=== PATIENT | male | born 1965 | race Caucasian/White ===

== ENCOUNTER 2023-01-24 11:22 | Inpatient (IN) | payer MEDICARE, OTHER ==
[~2023-01-24] VITALS: Ht 167.6 cm; Wt 78.9 kg
[2023-01-24] MEDS ORDERED: METO25TA6 PO (12:03)
[2023-01-24] MEDS ORDERED: CLOP75TA33 PO (12:03)
[2023-01-24] MEDS ORDERED: ATOR40TA PO (12:03)
[2023-01-24] MEDS ORDERED: ASPI81TA31 PO (12:03)
[2023-01-24] MEDS ORDERED: METF-442 PO (12:03)
[2023-01-24] MEDS ORDERED: RIVA10TA PO (12:03)
[2023-01-24 12:25] LABS: HEMATOCRIT 35.7 % (36.7-47.1); MEAN CORPUSCULAR HEMOGLOBIN 19.3 uug (23.8-33.4); MEAN CORPUSCULAR VOLUME 62.9 fL (73.0-96.2); PLATELET COUNT (AUTO) 329 K/uL (152-348)
[2023-01-24] MEDS ORDERED: IV NORMAL SALINE 500 ML BAG IV ONE (12:30)
[2023-01-24] MEDS ORDERED: METOPROLOL TARTRATE 5 MG/5 ML VIAL IVP ONE (12:30)
[2023-01-24 12:36] LABS: CREATININE 1.2 mg/dL (0.6-1.3); POTASSIUM 3.7 mmol/L (3.5-5.1)
[2023-01-24] MEDS ORDERED: VANCOMYCIN IV 1,000 MG in IV DEXTROSE 5% 250 ML IV ONE (12:45)
[2023-01-24] MEDS ORDERED: CEFEPIME HCL 1 G in IV DEXTROSE 5% 50 ML IV ONE (12:45)
[2023-01-24] MEDS ORDERED: CEFEPIME HCL 1 G VIAL ONE (12:48)
[2023-01-24] MEDS ORDERED: VANCOMYCIN IV 200 ML ONE (13:24)
--- NOTE | 2023-01-24 13:27 | NUR ---
maxepime finished at 1327
[2023-01-24] MEDS ORDERED: MORPHINE SULFATE 4 MG/1 ML DISP.SYRIN IV ONE (13:45)
[2023-01-24] MEDS ORDERED: LIDOCAINE HCL 1% 20 ML VIAL ONE (13:46)
[2023-01-24] MEDS ORDERED: BUPIVACAINE PF 0.5% 30 ML VIAL ONE (13:46)
[2023-01-24] MEDS ORDERED: MORPHINE SULFATE 4 MG/1 ML DISP.SYRIN ONE (13:53)
[2023-01-24] MEDS ORDERED: diphenhydrAMINE 50 MG/1 ML VIAL ONE (13:58)
[2023-01-24] MEDS ORDERED: FENTANYL CITRATE 100 MCG/2 ML AMPUL ONE (13:59)
[2023-01-24] MEDS ORDERED: MIDAZOLAM HCL 10 MG/2 ML VIAL ONE (13:59)
[2023-01-24] MEDS ORDERED: POVIDONE-IODINE OINT 30 GM TUBE TP ONE (13:59)
[2023-01-24] MEDS ORDERED: FAMOTIDINE. 20 MG/2 ML VIAL IV ONE (14:00)
[2023-01-24] MEDS ORDERED: ONDANSETRON 4 MG/2 ML VIAL ONE (14:00)
[2023-01-24] MEDS ORDERED: diphenhydrAMINE 50 MG/1 ML VIAL IV ONE (14:00)
[2023-01-24] MEDS ORDERED: PROPOFOL 200 MG/20 ML BOTTLE ONE (14:00)
--- NOTE | 2023-01-24 14:05 | NUR ---
Within moments of starting the vancomycin, pt c/o intense itching. Infusion was stopped and MD fartun notified and Andrew ordered and given. 4mg morphine was held based on orders from OR staff as they took the pt to surgery.
[2023-01-24] MEDS ORDERED: MIDAZOLAM HCL 2 MG/2 ML VIAL ONE (14:06)
[2023-01-24 15:50] VITALS: BP 121/78
--- NOTE | 2023-01-24 16:04 | NUR ---
RECEIVED PATIENT FROM THE [facility] UNIT TO ROOM 314 WITH INITIAL DIAGNOSIS OG RIGHT SECOND TOE GANGRENE AND S/P AMPUTATION OT THE SECOND TOE WITH DRESSING DRY AND INTACT HE HAS ABOUT 3 TOES SOWING FOR THE DRESSING AND HE IS ABLE TO WIGGLE AND IS WARM TO TOUCH.HE IS ON ROOM AIR WITH NO SOB AT THIS TIME.ORIENTED TO ROOM AND FACILITY PROTOCOL NOTIFIRD DR ROSADO THAT PATIENT IS HERE WITH NO NEW ORDERS AT THIS TIME.
[2023-01-24 16:05] VITALS: BP 121/82
[2023-01-24 16:35] VITALS: BP 134/90
--- NOTE | 2023-01-24 16:38 | NUR ---
3rd floor called, gave report to EDMAR Madsen
--- NOTE | 2023-01-24 17:20 | NUR ---
WAS NOTIFIED BY THE NURSE QUALITY THAT PATIENT HAS AFIB WITH RVR HIGH [address] ROSADO AND NOTIFIED HIM PATIENT BLOOD PRESSURE IS 151/84 DENIES DISCOMFORTS EATING HIS DINNER AT THIS TIME WILL CONTINUE TO OBSERVE.
[2023-01-24 17:35] VITALS: BP 133/88
[2023-01-24] MEDS ORDERED: AMIODARONE HCL IV 150 MG in IV DEXTROSE 5% 100 ML IV ONE (18:00)
--- NOTE | 2023-01-24 18:00 | NUR ---
DR ROSADO RETURNED CALL AND STATED TO TRANSFER PATIENT TO CCU AND TO START AMIODARONE DRCALIXTO TIRADO RN AWARE.
[2023-01-24] MEDS ORDERED: diphenhydrAMINE 50 MG/1 ML VIAL IV PRN (18:15)
[2023-01-24] MEDS ORDERED: ONDANSETRON 4 MG/2 ML VIAL IV PRN (18:15)
[2023-01-24] MEDS ORDERED: MAGNESIUM HYDROXIDE 30 ML LIQUID UDC PO PRN (18:15)
[2023-01-24] MEDS ORDERED: POTASSIUM CHLORIDE 20 MEQ in IV NS 1000 ML 1,000 ML IV PRN (18:15)
--- NOTE | 2023-01-24 18:34 | NUR ---
spoke to Dr Arteaga- pt ordered as LUKE status- amiodarone bolus followed by drip per protocol, BP 151/84 with HR 145 afib RVR, pt denies of any chest pain, no shortness of breath, will continue to monitor
[2023-01-24] MEDS: AMIODARONE HCL IV 450 MG in IV DEXTROSE 5% 250 ML IV PRN (18:53)
--- NOTE | 2023-01-24 18:53 | NUR ---
amiodarone drip 1mg/hr via pump started, still in afib RVR, BP 120/81 HR 140, denies of any CP, no shortness of breath, no distress, continue to monitor and will endorse to next shift
[2023-01-24 19:10] VITALS: BP 126/84
[2023-01-24] MEDS: RIVAROXABAN 15 MG TABLET PO SCH (19:28)
[2023-01-24] MEDS: METOPROLOL TARTRATE 25 MG TABLET PO SCH (19:29)
--- NOTE | 2023-01-24 19:30 | NUR ---
inserted H/L placed no .20 right forearm attempted x1 done aseptically .
[2023-01-24] MEDS: HYDROMORPHONE 1 MG/1 ML DISP.SYRIN IV PRN (19:35)
--- NOTE | 2023-01-24 19:35 | NUR ---
given Dilaudid prn pain medication c/o 8/10 pain to his right foot . right foot post post site dressing CDI , patient able to feel the touch when touch . able to wiggle the toes .
--- NOTE | 2023-01-24 20:00 | NUR ---
patient on amiodarone drip at 1 mg/hr = 33.3 ml/hr afib on the heart monitor rate 132.
[2023-01-24 20:01] VITALS: BP 129/90
[2023-01-24] MEDS: ATORVASTATIN 40 MG TABLET PO SCH (20:04)
[2023-01-24] MEDS: DOCUSATE SODIUM 100 MG CAPSULE PO SCH (20:04)
[2023-01-24] MEDS: ACETAMINOPHEN 325 MG TABLET PO PRN (20:05)
--- NOTE | 2023-01-24 20:05 | NUR ---
Tylenol prn given c/o low grade temp 100.4 orally .
--- NOTE | 2023-01-24 20:08 | NUR ---
started vancomycin antibiotic per pharmacy notes DR: ALISON aware about the vancomycin rxn in ER with standing order to monitor for vancomycin RXN call md and to given prn Benadryl standing order .
[2023-01-24] MEDS ORDERED: DOCUSATE SODIUM 250 MG CAPSULE PO SCH (21:00)
[2023-01-24] MEDS ORDERED: VANCOMYCIN IV 1,250 MG in IV DEXTROSE 5% 250 ML IV SCH (21:00)
--- NOTE | 2023-01-24 21:00 | NUR ---
send covid 19 swab testing . swab patient bilateral nares.
[2023-01-24] MEDS: CEFEPIME HCL 2 G in IV DEXTROSE 5% 100 ML IV SCH (21:46)
[2023-01-24] MEDS ORDERED: CEFEPIME HCL 1 G in IV DEXTROSE 5% 50 ML IV SCH (22:00)
--- NOTE | 2023-01-24 22:26 | NUR ---
vancomycin antx completed no antx rxn noted .
--- NOTE | 2023-01-25 | NUR ---
TEMP 101.5 F ORALLY given Tylenol po and provided ice water advised to drink more fluids .
[2023-01-25 00:26] VITALS: BP 113/71
--- NOTE | 2023-01-25 01:00 | NUR ---
amiodarone drip now at 0.5 mg/hr = to 16.6 ml/hr per protocol . afib rate rate 105
[2023-01-25] MEDS: ACETAMINOPHEN 325 MG TABLET PO PRN ×2 (01:29→20:42)
[2023-01-25] MEDS: AMIODARONE HCL IV 450 MG in IV DEXTROSE 5% 250 ML IV PRN (03:29)
[2023-01-25] MEDS: HYDROMORPHONE 1 MG/1 ML DISP.SYRIN IV PRN ×4 (03:41→21:00)
--- NOTE | 2023-01-25 03:42 | NUR ---
patient called verbalized unable to sleep c/o pain to his right foot . given prn pain meds . right foot dressing CDI and patient with good CMS
--- NOTE | 2023-01-25 04:00 | NUR ---
v/s temp 98.1F ORALLY and patient feels better no sweating changed soiled linens and gown .
[2023-01-25 04:15] VITALS: BP 103/75
[2023-01-25] MEDS: PANTOPRAZOLE SODIUM 40 MG TABLET.DR PO SCH (06:28)
[2023-01-25] MEDS: CEFEPIME HCL 2 G in IV DEXTROSE 5% 100 ML IV SCH ×3 (06:28→21:04)
[2023-01-25 07:32] VITALS: BP 111/65
[2023-01-25 07:48] LABS: HEMATOCRIT 33.8 % (36.7-47.1); MEAN CORPUSCULAR HEMOGLOBIN 19.6 uug (23.8-33.4); MEAN CORPUSCULAR VOLUME 63.6 fL (73.0-96.2); PLATELET COUNT (AUTO) 260 K/uL (152-348)
--- NOTE | 2023-01-25 08:04 | NUR ---
Awake, alert, oriented x 4. Amiodarone drip at 0.5 mg to LFA. IVF infusing to RFA. Tele Afib 104. Right foot dressing clean and dry.
[2023-01-25 08:16] LABS: ALKALINE PHOSPHATASE 202 U/L (50-136); BILIRUBIN,TOTAL 1.3 mg/dL (0.2-1.0); CARBON DIOXIDE 30 mmol/L (21-32); CHLORIDE 95 mmol/L (98-107); CREATININE 1.3 mg/dL (0.6-1.3); GLUCOSE 210 mg/dL (74-106); MAGNESIUM 1.5 mg/dL (1.8-2.4); PHOSPHOROUS 3.6 mg/dL (2.5-4.9); TOTAL PROTEIN, SERUM 6.7 g/dL (6.4-8.2); UREA NITROGEN, BLOOD 20 mg/dL (7-18)
[2023-01-25 08:43] LABS: CHOLESTEROL 68 mg/dL (<200); HDL CHOLESTEROL 37 mg/dL (40-60); TRIGLYCERIDES 41 MG/DL (30-150)
[2023-01-25] MEDS: ASPIRIN EC 81 MG TABLET.DR PO SCH (09:12)
[2023-01-25] MEDS: CLOPIDOGREL 75 MG TABLET PO SCH (09:12)
[2023-01-25] MEDS: METOPROLOL TARTRATE 25 MG TABLET PO SCH (09:13)
--- NOTE | 2023-01-25 09:15 | NUR ---
Reports of pain right foot. Dilaudid IV given as ordered. PT eval initiated after, ambulated in the hallway with FWW
[2023-01-25 09:21] LABS: IRON, SERUM 16 ug/dL (50-175)
[2023-01-25 09:44] LABS: ASPARTATE AMINOTRANSFERASE 9 U/L (15-37)
[2023-01-25 09:50] LABS: ALANINE AMINOTRANSFERASE < 6 U/L (16-63)
[2023-01-25] MEDS: MAGNESIUM SULFATE/D5W 100 ML IV SCH ×2 (09:55→10:59)
[2023-01-25] MEDS ORDERED: DEXTROSE 50% 50 ML DISP.SYRIN IV PRN (10:00)
[2023-01-25 11:16] VITALS: BP 120/78
[2023-01-25] MEDS ORDERED: INSU100I26 SQ (11:34)
[2023-01-25] MEDS: METFORMIN HCL 500 MG TABLET PO SCH ×2 (12:09→17:36)
[2023-01-25] MEDS: BLOOD SUGAR DIAGNOSTIC 1 EACH STRIP VI SCH ×3 (12:09→20:43)
[2023-01-25] MEDS: INSULIN REGULAR, HUMAN 300 UNIT/3 ML VIAL SQ PRN ×3 (12:12→20:55)
--- NOTE | 2023-01-25 12:15 | NUR ---
BG 323, Insulin given per sliding scale
--- NOTE | 2023-01-25 14:21 | NUR ---
Report of right foot pain. Dilaudid IV given as ordered with relief. Resting after.
[2023-01-25 15:20] VITALS: BP 136/87
--- NOTE | 2023-01-25 15:30 | NUR ---
Tele Afib 89; Dr. Islas seen patient with order. Amiodarone drip discontinued.
[2023-01-25] MEDS: VANCOMYCIN IV 1,250 MG in IV DEXTROSE 5% 250 ML IV SCH (17:36)
[2023-01-25] MEDS: RIVAROXABAN 15 MG TABLET PO SCH (17:38)
--- NOTE | 2023-01-25 18:25 | NUR ---
Dr. Mac seen and examined patient. Right foot dressing changed, kept clean and dry.
[2023-01-25 20:00] VITALS: BP 115/64
--- NOTE | 2023-01-25 20:33 | NUR ---
fingerstick done blood sugar result 186 mg/dl ISS given .
[2023-01-25] MEDS: DOCUSATE SODIUM 100 MG CAPSULE PO SCH (20:41)
[2023-01-25] MEDS: ATORVASTATIN 40 MG TABLET PO SCH (20:41)
[2023-01-25] MEDS: METOPROLOL TARTRATE 50 MG TABLET PO SCH (20:42)
--- NOTE | 2023-01-25 20:42 | NUR ---
Tylenol prn given c/o low grade temperature of 99.4 F orally . patient took mediation with water .
[2023-01-25] MEDS: INSULIN GLARGINE,HUM 300 UNITS/3 ML CARTRIDGE SQ SCH (20:54)
[2023-01-25] MEDS ORDERED: MUPIROCIN 2% OINT 22 GM TUBE NS SCH (21:00)
[2023-01-25] MEDS ORDERED: METOPROLOL TARTRATE 25 MG TABLET PO SCH (21:00)
--- NOTE | 2023-01-25 21:00 | NUR ---
patient called and requesting pain medication 10 /10 pain to his right foot. checked right foot post op site dressing CDI ,patient able to moved the foot with good CMS .RIGHT FOOT ELEVATED WITH PILLOW .
--- NOTE | 2023-01-25 21:04 | NUR ---
due antx given scan medication given via the right midline access ,flushed and patent .
[2023-01-26] VITALS: BP 112/74
[2023-01-26] MEDS: HYDROMORPHONE 1 MG/1 ML DISP.SYRIN IV PRN ×7 (00:54→23:54)
[2023-01-26 04:00] VITALS: BP 93/68
[2023-01-26] MEDS: CEFEPIME HCL 2 G in IV DEXTROSE 5% 100 ML IV SCH ×3 (05:42→21:16)
[2023-01-26] MEDS: PANTOPRAZOLE SODIUM 40 MG TABLET.DR PO SCH (06:09)
[2023-01-26] MEDS: BLOOD SUGAR DIAGNOSTIC 1 EACH STRIP VI SCH ×4 (06:36→21:23)
[2023-01-26 07:06] LABS: HEMATOCRIT 30.7 % (36.7-47.1); MEAN CORPUSCULAR HEMOGLOBIN 19.6 uug (23.8-33.4); MEAN CORPUSCULAR VOLUME 62.9 fL (73.0-96.2); PLATELET COUNT (AUTO) 274 K/uL (152-348)
[2023-01-26 07:23] LABS: CREATININE 1.1 mg/dL (0.6-1.3); PHOSPHOROUS 2.9 mg/dL (2.5-4.9); POTASSIUM 3.8 mmol/L (3.5-5.1)
--- NOTE | 2023-01-26 08:00 | NUR ---
PATIENT RESTING IN BED WITH NO SS OF SOB OR DISTRESS BUT ON AND OFF PAIN RIGHT FOOT CONTINUE WITH PAIN MANAGEMENT ORDERED. SE ON MONITOR
[2023-01-26] MEDS: METFORMIN HCL 500 MG TABLET PO SCH ×2 (08:23→17:31)
[2023-01-26] MEDS: ASPIRIN EC 81 MG TABLET.DR PO SCH (08:23)
[2023-01-26] MEDS: CLOPIDOGREL 75 MG TABLET PO SCH (08:24)
[2023-01-26] MEDS: METOPROLOL TARTRATE 50 MG TABLET PO SCH ×2 (08:24→22:21)
[2023-01-26 11:54] VITALS: BP 106/69
--- NOTE | 2023-01-26 12:00 | NUR ---
SEEN BY HOSPITALIST FOR FOLLOW-UP AND DISCUSSED PLAN OF CARE. SEE NOTES
[2023-01-26] MEDS: INSULIN REGULAR, HUMAN 300 UNIT/3 ML VIAL SQ PRN ×3 (12:03→21:28)
[2023-01-26] MEDS: VANCOMYCIN IV 1,250 MG in IV DEXTROSE 5% 250 ML IV SCH (12:05)
--- NOTE | 2023-01-26 14:58 | NUR ---
SEEN BY PHYSICAL THERAOIST FOR FOLLOW-UP WITH CRUTCH. SEE NOTES.
[2023-01-26 15:50] VITALS: BP 108/60
[2023-01-26] MEDS: RIVAROXABAN 15 MG TABLET PO SCH (17:31)
[2023-01-26 20:00] VITALS: BP 110/59
[2023-01-26] MEDS: DOCUSATE SODIUM 100 MG CAPSULE PO SCH (20:21)
[2023-01-26] MEDS: ATORVASTATIN 40 MG TABLET PO SCH (20:21)
[2023-01-26] MEDS: INSULIN GLARGINE,HUM 300 UNITS/3 ML CARTRIDGE SQ SCH (21:29)
[2023-01-27] VITALS (8 sets, daily range): BP systolic 96–132; BP diastolic 42–82
[2023-01-27] MEDS: HYDROMORPHONE 1 MG/1 ML DISP.SYRIN IV PRN ×6 (02:43→22:54)
[2023-01-27] MEDS: CEFEPIME HCL 2 G in IV DEXTROSE 5% 100 ML IV SCH ×3 (05:14→21:06)
[2023-01-27] MEDS: PANTOPRAZOLE SODIUM 40 MG TABLET.DR PO SCH (06:03)
[2023-01-27] MEDS: BLOOD SUGAR DIAGNOSTIC 1 EACH STRIP VI SCH ×4 (06:09→20:23)
[2023-01-27] MEDS: INSULIN REGULAR, HUMAN 300 UNIT/3 ML VIAL SQ PRN ×4 (07:45→20:22)
--- NOTE | 2023-01-27 08:00 | NUR ---
RESTING COMFORTABLY IN BED WITH C/O MILD TO MODERATE PAIN RIGHT FOOT. CONTINUE WITH PRN MEDS ORDERED WITH TEMPORARY RELIEF. AFIB CONTROLLED ON MONITOR
[2023-01-27 08:11] LABS: HEMATOCRIT 31.1 % (36.7-47.1); MEAN CORPUSCULAR HEMOGLOBIN 19.8 uug (23.8-33.4); MEAN CORPUSCULAR VOLUME 63.3 fL (73.0-96.2); PLATELET COUNT (AUTO) 272 K/uL (152-348)
[2023-01-27] MEDS: ASPIRIN EC 81 MG TABLET.DR PO SCH (08:25)
[2023-01-27] MEDS: METFORMIN HCL 500 MG TABLET PO SCH ×2 (08:25→17:24)
[2023-01-27] MEDS: CLOPIDOGREL 75 MG TABLET PO SCH (08:25)
[2023-01-27] MEDS: METOPROLOL TARTRATE 50 MG TABLET PO SCH ×2 (08:26→20:09)
[2023-01-27 08:31] LABS: CREATININE 1.2 mg/dL (0.6-1.3); MAGNESIUM 1.8 mg/dL (1.8-2.4); PHOSPHOROUS 3.1 mg/dL (2.5-4.9); POTASSIUM 4.3 mmol/L (3.5-5.1); VANCOMYCIN,TROUGH 12.9 ug/mL (12.0-20.0)
[2023-01-27] MEDS: VANCOMYCIN IV 1,250 MG in IV DEXTROSE 5% 250 ML IV SCH (09:37)
--- NOTE | 2023-01-27 12:56 | NUR ---
CONTINUE WITH IV ANTIBIOTIC AND FOOT TX ORDERED. RIGHT FOOT ELEVATED AT ALL TIMES
[2023-01-27] MEDS: RIVAROXABAN 15 MG TABLET PO SCH (17:25)
[2023-01-27] MEDS: FUROSEMIDE 40 MG TABLET PO SCH (19:58)
[2023-01-27] MEDS: DOCUSATE SODIUM 100 MG CAPSULE PO SCH (20:09)
[2023-01-27] MEDS: ATORVASTATIN 40 MG TABLET PO SCH (20:09)
[2023-01-27] MEDS: INSULIN GLARGINE,HUM 300 UNITS/3 ML CARTRIDGE SQ SCH (20:23)
[2023-01-28] VITALS (9 sets, daily range): BP systolic 97–122; BP diastolic 50–64
[2023-01-28] MEDS: VANCOMYCIN IV 1,250 MG in IV DEXTROSE 5% 250 ML IV SCH (05:01)
[2023-01-28] MEDS: CEFEPIME HCL 2 G in IV DEXTROSE 5% 100 ML IV SCH ×3 (05:01→21:15)
[2023-01-28] MEDS: PANTOPRAZOLE SODIUM 40 MG TABLET.DR PO SCH (06:06)
[2023-01-28] MEDS: BLOOD SUGAR DIAGNOSTIC 1 EACH STRIP VI SCH ×4 (06:17→20:49)
[2023-01-28 06:53] LABS: HEMATOCRIT 30.8 % (36.7-47.1); MEAN CORPUSCULAR HEMOGLOBIN 19.8 uug (23.8-33.4); MEAN CORPUSCULAR VOLUME 62.9 fL (73.0-96.2); PLATELET COUNT (AUTO) 294 K/uL (152-348)
[2023-01-28 06:54] LABS: MAGNESIUM 1.7 mg/dL (1.8-2.4); PHOSPHOROUS 3.3 mg/dL (2.5-4.9); POTASSIUM 3.9 mmol/L (3.5-5.1)
[2023-01-28] MEDS: INSULIN REGULAR, HUMAN 300 UNIT/3 ML VIAL SQ PRN ×4 (07:56→20:47)
[2023-01-28] MEDS: METFORMIN HCL 500 MG TABLET PO SCH ×2 (07:58→17:03)
--- NOTE | 2023-01-28 08:00 | NUR ---
Received patient lying in bed awake, alert and oriented. Not in distress, A-fib on cardiac tele monitor at 103bpm, closely monitored. No complain of pain. Vital signs are stable, medications given and recorded.
[2023-01-28] MEDS: ASPIRIN EC 81 MG TABLET.DR PO SCH (08:34)
[2023-01-28] MEDS: CLOPIDOGREL 75 MG TABLET PO SCH (08:34)
[2023-01-28] MEDS: FUROSEMIDE 40 MG TABLET PO SCH ×2 (08:34→17:04)
[2023-01-28] MEDS: METOPROLOL TARTRATE 50 MG TABLET PO SCH ×2 (08:34→20:39)
--- NOTE | 2023-01-28 09:00 | NUR ---
Seen by physical therapist, treatment done and ambulate using crutches.
[2023-01-28] MEDS: ACETAMINOPHEN 325 MG TABLET PO PRN (09:08)
[2023-01-28] MEDS ORDERED: MAGNESIUM OXIDE 400 MG TABLET PO ONE (09:45)
--- NOTE | 2023-01-28 10:00 | NUR ---
Wound care done and dressing changed to right toe and right heel. Keep wound clean and no infections.
[2023-01-28] MEDS: HYDROMORPHONE 1 MG/1 ML DISP.SYRIN IV PRN ×2 (10:40→21:18)
--- NOTE | 2023-01-28 10:40 | NUR ---
Patient complaining of pain, Dilaudid 0.5mg IV given. Observed accordingly
--- NOTE | 2023-01-28 11:00 | NUR ---
Seen and examined by Dr. Doshi, with orders made and carried out, continue with tele, continue care plan. Attended
--- NOTE | 2023-01-28 14:46 | NUR ---
Seen patient asleep, resting comfortably, no complain as this time. No acute changes from morning shift. Keep monitored.
[2023-01-28] MEDS: RIVAROXABAN 15 MG TABLET PO SCH (17:04)
[2023-01-28] MEDS: ATORVASTATIN 40 MG TABLET PO SCH (20:22)
[2023-01-28] MEDS: DOCUSATE SODIUM 100 MG CAPSULE PO SCH (20:22)
[2023-01-28] MEDS: INSULIN GLARGINE,HUM 300 UNITS/3 ML CARTRIDGE SQ SCH (20:47)
[2023-01-28] MEDS ORDERED: VANCOMYCIN IV 1,250 MG in IV DEXTROSE 5% 250 ML IV SCH (22:00)
[2023-01-28] MEDS: METRONIDAZOLE 500 MG TABLET PO SCH (22:14)
[2023-01-28] MEDS: levoFLOXacin 750 MG TABLET PO SCH (22:15)
[2023-01-29] VITALS: BP 118/62
[2023-01-29 04:00] VITALS: BP 117/64
[2023-01-29] MEDS: METRONIDAZOLE 500 MG TABLET PO SCH ×3 (06:06→22:07)
[2023-01-29] MEDS: PANTOPRAZOLE SODIUM 40 MG TABLET.DR PO SCH (06:06)
[2023-01-29 06:09] LABS: HEMATOCRIT 31.1 % (36.7-47.1); MEAN CORPUSCULAR HEMOGLOBIN 19.5 uug (23.8-33.4); MEAN CORPUSCULAR VOLUME 62.5 fL (73.0-96.2); PLATELET COUNT (AUTO) 313 K/uL (152-348)
[2023-01-29 06:24] LABS: CREATININE 1.1 mg/dL (0.6-1.3); MAGNESIUM 1.5 mg/dL (1.8-2.4); PHOSPHOROUS 2.9 mg/dL (2.5-4.9); POTASSIUM 3.7 mmol/L (3.5-5.1)
[2023-01-29] MEDS: BLOOD SUGAR DIAGNOSTIC 1 EACH STRIP VI SCH ×4 (06:34→20:47)
[2023-01-29 06:50] LABS: BAND % (MANUAL) 1 % (0-10); EOSINOPHILS % (MANUAL) 1 % (0-8); LYMPHOCYTES % (MANUAL) 3 % (20-40); MONOCYTES % (MANUAL) 7 % (2-10); NEUTROPHILS % (MANUAL) 88 % (42-75)
[2023-01-29] MEDS: HYDROMORPHONE 1 MG/1 ML DISP.SYRIN IV PRN ×2 (07:17→09:32)
--- NOTE | 2023-01-29 08:30 | NUR ---
RECEIEVD PT ON BED AWAKE.CALM AND RELAX. AOX4. IN NO ACUTE DISTRESS. COMPLAINING OF RIGHT FOOT PAIN, NOC SHIFT RN JUST GAVE 1 DOSE OF DILAUDID AT 0700. SAFETY MEASURE IN PLACED. WILL CONT TO MONITOR.
[2023-01-29] MEDS: CLOPIDOGREL 75 MG TABLET PO SCH (08:48)
[2023-01-29] MEDS: ASPIRIN EC 81 MG TABLET.DR PO SCH (08:48)
[2023-01-29] MEDS: FUROSEMIDE 40 MG TABLET PO SCH ×2 (08:48→17:21)
[2023-01-29] MEDS: METFORMIN HCL 500 MG TABLET PO SCH ×2 (08:48→17:21)
[2023-01-29] MEDS: INSULIN REGULAR, HUMAN 300 UNIT/3 ML VIAL SQ PRN ×4 (08:51→20:47)
[2023-01-29 08:54] VITALS: BP 118/75
[2023-01-29] MEDS: METOPROLOL TARTRATE 50 MG TABLET PO SCH ×2 (08:56→20:44)
[2023-01-29] MEDS: MAGNESIUM SULFATE/D5W 100 ML IV SCH ×2 (10:44→12:08)
[2023-01-29] MEDS: PROTEIN SUPPLEMENT (PROSTAT) 30 ML LIQUID PO SCH (13:51)
[2023-01-29] MEDS: OXYCODONE/APAP 5-325 MG TABLET PO PRN ×2 (13:51→20:16)
--- NOTE | 2023-01-29 14:00 | NUR ---
pt complain of right foot pain. prn norco was given. will reassess in 1 hr.
[2023-01-29 16:00] VITALS: BP 123/64
--- NOTE | 2023-01-29 16:04 | NUR ---
right foot wound tx done
[2023-01-29] MEDS: RIVAROXABAN 15 MG TABLET PO SCH (17:23)
[2023-01-29] MEDS: ATORVASTATIN 40 MG TABLET PO SCH (20:16)
[2023-01-29] MEDS: DOCUSATE SODIUM 100 MG CAPSULE PO SCH (20:16)
[2023-01-29 20:32] VITALS: BP 111/73
[2023-01-29] MEDS: INSULIN GLARGINE,HUM 300 UNITS/3 ML CARTRIDGE SQ SCH (20:46)
[2023-01-29] MEDS: levoFLOXacin 750 MG TABLET PO SCH (22:07)
[2023-01-30 00:44] VITALS: BP 101/62
[2023-01-30] MEDS: OXYCODONE/APAP 5-325 MG TABLET PO PRN ×2 (03:15→12:30)
[2023-01-30 04:15] VITALS: BP 114/70
[2023-01-30] MEDS: METRONIDAZOLE 500 MG TABLET PO SCH ×3 (05:25→21:11)
[2023-01-30] MEDS: PANTOPRAZOLE SODIUM 40 MG TABLET.DR PO SCH (06:13)
[2023-01-30 06:40] LABS: HEMATOCRIT 33.2 % (36.7-47.1); MEAN CORPUSCULAR HEMOGLOBIN 19.4 uug (23.8-33.4); MEAN CORPUSCULAR VOLUME 62.7 fL (73.0-96.2); PLATELET COUNT (AUTO) 361 K/uL (152-348)
[2023-01-30] MEDS: BLOOD SUGAR DIAGNOSTIC 1 EACH STRIP VI SCH ×4 (06:45→21:05)
[2023-01-30 06:57] LABS: MAGNESIUM 1.8 mg/dL (1.8-2.4); PHOSPHOROUS 3.2 mg/dL (2.5-4.9); POTASSIUM 3.8 mmol/L (3.5-5.1)
[2023-01-30] MEDS: PROTEIN SUPPLEMENT (PROSTAT) 30 ML LIQUID PO SCH (08:00)
[2023-01-30] MEDS: ASPIRIN EC 81 MG TABLET.DR PO SCH (09:22)
[2023-01-30] MEDS: CLOPIDOGREL 75 MG TABLET PO SCH (09:22)
[2023-01-30] MEDS: METOPROLOL TARTRATE 50 MG TABLET PO SCH ×2 (09:23→20:50)
[2023-01-30] MEDS: FUROSEMIDE 40 MG TABLET PO SCH ×2 (09:23→17:16)
[2023-01-30] MEDS: METFORMIN HCL 500 MG TABLET PO SCH ×2 (09:26→17:17)
[2023-01-30 11:35] VITALS: BP 110/68
[2023-01-30] MEDS ORDERED: POTASSIUM CHLORIDE 20 MEQ TAB.PRT.SR PO ONE (12:00)
[2023-01-30] MEDS: MAGNESIUM SULFATE/D5W 100 ML IV SCH ×2 (12:31→13:36)
[2023-01-30] MEDS: INSULIN REGULAR, HUMAN 300 UNIT/3 ML VIAL SQ PRN ×3 (12:33→21:06)
[2023-01-30 16:00] VITALS: BP 113/67
[2023-01-30] MEDS: RIVAROXABAN 15 MG TABLET PO SCH (17:17)
--- NOTE | 2023-01-30 18:35 | NUR ---
Patient is AAOX4, compliant with medication. Wound dressing was done today. Patient is stable and independent. No behavior issues observed or reported. Will continue to monitor patient for safety.
[2023-01-30] MEDS: MORPHINE SULFATE 2 MG/1 ML DISP.SYRIN IV PRN (19:12)
[2023-01-30 20:27] VITALS: BP 107/64
[2023-01-30] MEDS: DOCUSATE SODIUM 100 MG CAPSULE PO SCH (20:50)
[2023-01-30] MEDS: ATORVASTATIN 40 MG TABLET PO SCH (20:50)
[2023-01-30] MEDS: INSULIN GLARGINE,HUM 300 UNITS/3 ML CARTRIDGE SQ SCH (20:57)
[2023-01-30] MEDS: levoFLOXacin 750 MG TABLET PO SCH (21:11)
[2023-01-31 00:09] VITALS: BP 118/70
[2023-01-31] MEDS: OXYCODONE/APAP 5-325 MG TABLET PO PRN (03:12)
--- NOTE | 2023-01-31 03:13 | NUR ---
CALLED C/O PAIN -ITCHINESS ON THE RIGHT FOOT POST OP SITE SCALE 7/10 GIVEN PERCOCET PO PRN FOR PAIN .
[2023-01-31 04:19] VITALS: BP 98/59
[2023-01-31] MEDS: PANTOPRAZOLE SODIUM 40 MG TABLET.DR PO SCH (06:06)
[2023-01-31] MEDS: METRONIDAZOLE 500 MG TABLET PO SCH ×2 (06:06→13:32)
[2023-01-31] MEDS: BLOOD SUGAR DIAGNOSTIC 1 EACH STRIP VI SCH ×2 (06:41→11:30)
[2023-01-31 06:43] LABS: MEAN CORPUSCULAR HEMOGLOBIN 19.5 uug (23.8-33.4); MEAN CORPUSCULAR VOLUME 62.3 fL (73.0-96.2); PLATELET COUNT (AUTO) 360 K/uL (152-348)
[2023-01-31 07:25] LABS: CREATININE 1.1 mg/dL (0.6-1.3); MAGNESIUM 1.9 mg/dL (1.8-2.4); PHOSPHOROUS 3.6 mg/dL (2.5-4.9); POTASSIUM 3.9 mmol/L (3.5-5.1)
--- NOTE | 2023-01-31 07:30 | NUR ---
NIGHT STAFF REPORT: 1) MENTAL STATE: AOx0 and confused 2) BREATHING: On R/A - saturating in the high 90s - no sign of SOB, or distress observed. 3) SAFETY: Bed in low position, bed alarm activated, area around bed clear of obstacles, call fuentes within reach. 4) INFECTION CONTROL: IV access YOUNG wrist (reinserted by night nurse) - patent, no sign of infection or inflammation observed. 5) EATING & DRINKING: needs assistance - and aspiration precaution. 6) ELIMINATION: Wears a diaper - doubly incontinent. 7) MOBILITY: bed bound - need pressure area care - has bilateral restrains - pulls line and tried to get out of bed , has unsteady gait. 8) PRESSURE AREA CARE: Skin intake - moves up and down the bed and tries to get out of bed. 9) Will continue to assess, monitor, implement, and evaluate care accordingly.
[2023-01-31] MEDS: PROTEIN SUPPLEMENT (PROSTAT) 30 ML LIQUID PO SCH (08:00)
[2023-01-31] MEDS: METOPROLOL TARTRATE 50 MG TABLET PO SCH ×2 (09:00→13:34)
--- NOTE | 2023-01-31 09:00 | NUR ---
Morning meds administered as prescribed
[2023-01-31] MEDS: FUROSEMIDE 40 MG TABLET PO SCH (10:03)
[2023-01-31] MEDS: CLOPIDOGREL 75 MG TABLET PO SCH (10:03)
[2023-01-31] MEDS: ASPIRIN EC 81 MG TABLET.DR PO SCH (10:03)
[2023-01-31] MEDS: METFORMIN HCL 500 MG TABLET PO SCH (10:03)
[2023-01-31] MEDS ORDERED: MAGNESIUM SULFATE/D5W 100 ML IV SCH (10:30)
[2023-01-31] MEDS ORDERED: POTASSIUM CHLORIDE 10 MEQ TAB.PRT.SR PO ONE (10:30)
[2023-01-31] MEDS ORDERED: LEVO750T46 PO (11:07)
[2023-01-31] MEDS ORDERED: OXYC-128 PO (11:07)
[2023-01-31] MEDS ORDERED: METO50TA16 PO (11:07)
[2023-01-31] MEDS ORDERED: METR500T PO (11:07)
--- NOTE | 2023-01-31 11:09 | NUR ---
Attending Jarrett Mcfadden Spoke to pt's daughter and discussed care plan with her.
[2023-01-31 11:35] VITALS: BP 113/72
[2023-01-31] MEDS: MORPHINE SULFATE 2 MG/1 ML DISP.SYRIN IV PRN (13:23)
--- NOTE | 2023-01-31 14:02 | NUR ---
PAIN MANAGEMENT: 1) Complaining of pain - Morphine administered as prescribed and await effect. 2) Will continue to monitor, assess, implement and treat accordingly.
[2023-01-31 15:42] VITALS: BP 127/68
--- NOTE | 2023-01-31 16:55 | NUR ---
DISCHARGE PLANNIN) Discharge paperwork completed, signed and copies given to patient. 2) IV access to L Arm removed, pressure applied, clean dressing applied, and no further bleeding. 3) E-Prescription sent to pharmacy of patient's choice. 4) Dressing changed, clean - no sign of infection or inflammation observed. 5) Daughter will collected patient.
--- NOTE | 2023-01-31 16:55 | NUR ---
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 Pt. assisted by staff and taken down via wheel-chair. Pt. left in stable condition to visible or reported distress. This while primary R.N. o her break.
== END 2023-01-31 16:55 | disposition home health service (06) | DRG 853 ==
LOC: ER 11:22 → TELE3 14:57 → TELE-TD3 18:15 → TELE3 01-25 18:35
PROVIDERS: ADMIT Internal Medicine; ATTEND Internal Medicine
PROC: 0Y6R0Z1 Detachment at Right 2nd Toe, High, Open Approach (ICD-10-PCS; principal; 2023-01-24)
PROC: 05H933Z Insertion of Infusion Device into Right Brachial Vein, Percutaneous Approach (ICD-10-PCS; 2023-01-25)
DX: A41.89 Other specified sepsis (principal); A48.0 Gas gangrene; N17.0 Acute kidney failure with tubular necrosis; E11.52 Type 2 diabetes mellitus with diabetic peripheral angiopathy with gangrene; I70.268 Atherosclerosis of native arteries of extremities with gangrene, other extremity; M86.171 Other acute osteomyelitis, right ankle and foot; L03.115 Cellulitis of right lower limb; I31.9 Disease of pericardium, unspecified; L97.418 Non-pressure chronic ulcer of right heel and midfoot with other specified severity; E22.2 Syndrome of inappropriate secretion of antidiuretic hormone; D68.59 Other primary thrombophilia; Z79.84 Long term (current) use of oral hypoglycemic drugs; E11.69 Type 2 diabetes mellitus with other specified complication; E11.65 Type 2 diabetes mellitus with hyperglycemia; B96.89 Other specified bacterial agents as the cause of diseases classified elsewhere; D50.9 Iron deficiency anemia, unspecified; Z20.822 Contact with and (suspected) exposure to COVID-19; Z95.1 Presence of aortocoronary bypass graft; I25.10 Atherosclerotic heart disease of native coronary artery without angina pectoris; Z98.62 Peripheral vascular angioplasty status; Z87.891 Personal history of nicotine dependence; Z79.899 Other long term (current) drug therapy; Z79.02 Long term (current) use of antithrombotics/antiplatelets; Z79.01 Long term (current) use of anticoagulants; E11.621 Type 2 diabetes mellitus with foot ulcer; R19.7 Diarrhea, unspecified; E78.5 Hyperlipidemia, unspecified; R91.8 Other nonspecific abnormal finding of lung field; E87.8 Other disorders of electrolyte and fluid balance, not elsewhere classified; Z79.82 Long term (current) use of aspirin; Z74.09 Other reduced mobility
CPT/HCPCS: 36415; 70030-TC; 71045; 71250; 73630; 83550; 83735; 84100; 84443; 84484; 85025; 85610; 85651; 86140; 86803; 86850; 86900; 86901; 87040; 87806; 88312-TC; 93005; 93307; A4649; A4663; A9150; G0378; J0282; J0692; J1170; J1200; J1815; J2250; J2270; J2405; J3010; J3370; J3475; J3480; J3490; J7040; J7050; J7120